=== PATIENT | male | born 1965 | race Caucasian/White ===

== ENCOUNTER 2024-08-26 02:12 | Emergency (ER) | payer OTHER, SELFPAY ==
[2024-08-26] VITALS (16 sets, daily range): BP systolic 137–178; BP diastolic 90–141; PULSE 81–121; RESP 10–22; TEMP 36.4; O2SAT 89–100; BMI 29.7
--- NOTE | 2024-08-26 02:21 | XRR_ITS ---
PROCEDURE INFORMATION: Exam: XR Chest Exam date and time: 08/26/2024 2:25 AM Age: 59 years old Clinical indication: Pain; Chest pressure; Additional info: Chest pain TECHNIQUE: Imaging protocol: Radiologic exam of the chest. Views: 1 view. COMPARISON: No relevant prior studies available. FINDINGS: Lungs: Unremarkable. No consolidation. Pleural spaces: Unremarkable. No pleural effusion. No pneumothorax. Heart/Mediastinum: Unremarkable. No cardiomegaly. Bones/joints: Unremarkable. XR/XR chest 1V portable [id number] IMPRESSION: No acute findings.
--- NOTE | 2024-08-26 02:33 | ECG_ITS ---
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 Measurements Intervals [place] Rate: 117 P: 0 [place]: 0 QRS: 36 QRSD: 94 T: 83 QT: 356 QTc: 497 Interpretive Statements ATRIAL FIBRILLATION WITH RAPID VENTRICULAR RESPONSE WITH ABERRANT CONDUCTION OR VENTRICULAR PREMATURE COMPLEXES NONSPECIFIC ST & T-WAVE ABNORMALITY ABNORMAL RHYTHM ECG No previous ECG available for comparison Electronically Signed On 08-27-2024 17:55:07 PAROLE SUPERVISOR by Eldon Aguilar M.D. [id number]
[2024-08-26 02:36] LABS: Basophils # 0.1 10^3/uL (0.0-0.1); Basophils % 0.5 %; Eosinophils % 0.2 %; Hematocrit 47.5 % (37-53); Lymphocytes # 2.1 10^3/uL (0.8-4.8); Lymphocytes % 12.4 %; Mean Corpuscular HGB Conc 33.7 g/dL (30-55); Mean Corpuscular Hemoglobin 33.1 pg (27-33); Mean Corpuscular Volume 98.3 fl (82-101); Monocytes # 0.8 10^3/uL (0.2-0.9); Monocytes % 4.9 %; Neutrophils # 13.57 10^3/uL (1.8-7.7); Neutrophils % 81.5 %; Nucleated Red Blood Cells % 0 %; Platelet Count 265 10^3/cmm (157-399); Red Blood Count 4.83 10^6/uL (3.85-5.65); Red Cell Distribution Width 13.2 % (12.1-15.1); White Blood Count 16.66 10^3/uL (3.29-11.43)
--- NOTE | 2024-08-26 02:37 | W.ED.SOB ---
HPI - SOB/Dyspnea General: Chief Complaint: Shortness of Breath/Dyspnea Stated Complaint: Sob\High BP Time Seen by Provider: 08/26/24 02:14 History of Present Illness: HPI Narrative: 59-year-old man with a history of hypertension, Atrial fibrillation and chronic anticoagulation on Eliquis who presents emergency room with pain between his shoulder blades and hypertension. He is being treated for respiratory infection with steroids and antibiotics that he got had a urgent care. He has been feeling short of breath for the last couple of days. Blood pressure was quite elevated well over 200 systolic at home he says. No altered mental status. No fevers. No abdominal pain. No vomiting. Related Data Home Medications ?Medication ?Instructions ?Recorded ?Confirmed apixaban 5 mg tablet (Eliquis) 5 mg PO BID 10/07/22 10/07/22 aspirin 81 mg tablet,delayed 81 mg PO DAILY 10/07/22 10/07/22 release (Adult Aspirin Regimen) lisinopril 5 mg tablet 5 mg PO DAILY 10/07/22 10/07/22 Previous Rx's ?Medication ?Instructions ?Recorded colchicine 0.6 mg capsule 0.6 mg PO DAILY #15 caps 10/07/22 clonidine HCl 0.1 mg tablet 0.1 mg PO Q8H PRN hypertensive 08/26/24 emergency #20 tabs Allergies Allergy/AdvReac Type Severity Reaction Status Date / Time No Known Allergies Allergy Verified 08/26/24 02:26 Review of Systems Narrative: Constitutional symptoms: Negative except as documented in HPI. Skin symptoms: Negative except as documented in HPI. Eye symptoms: Negative except as documented in HPI. ENMT symptoms: Negative except as documented in HPI. Respiratory symptoms: Negative except as documented in HPI. Cardiovascular symptoms: Negative except as documented in HPI. Gastrointestinal symptoms: Negative except as documented in HPI. Genitourinary symptoms: Negative except as documented in HPI. Musculoskeletal symptoms: Negative except as documented in HPI. Neurologic symptoms: Negative except as documented in HPI. Psychiatric symptoms: Negative except as documented in HPI. Endocrine symptoms: Negative except as documented in HPI. Physical Exam Narrative: EXAM NARRATIVE: General: Alert, no acute distress. Skin: Warm, dry. Head: Normocephalic, atraumatic. Neck: Supple, trachea midline. Eye: Extraocular movements are intact. Ears, nose, mouth and throat: mucosa moist. Cardiovascular: Irregular, tachycardic, Normal peripheral perfusion. Respiratory: Lungs are clear to auscultation, respirations are non-labored, breath sounds are equal, Symmetrical chest wall expansion. Gastrointestinal: Soft, Nontender, Non distended Musculoskeletal: Normal ROM, no deformity. Neurological: Alert and oriented, No focal neurological deficit observed. Psychiatric: Cooperative, appropriate mood & affect. Course Vital Signs: Vital signs: Vital Signs Temperature 97.6 F 08/26/24 02:17 Pulse Rate 81 08/26/24 05:00 Respiratory Rate 20 H 08/26/24 05:00 Blood Pressure 155/90 08/26/24 05:00 Pulse Oximetry 100 08/26/24 05:00 Oxygen Delivery Me thod Room Air 08/26/24 02:17 MDM - SOB/Dyspnea Medical Decision Making Medical decision making: Differential diagnosis including but not limited to and based on the above HPI, review of systems and physical exam: Patient presents with hypertension: Essential hypertension. Stroke. acute coronary syndrome. kidney failure. congestive heart failure. anxiety Orders placed to evaluate differential diagnosis based on the above differential, HPI and physical exam EKG: Time 2:33 AM. Rate 117. Atrial fibrillation with rapid ventricular response, No ST-T changes, frequent PVCs, This was reviewed and interpreted by myself the ER physician at 2:36 AM. Chest x-ray: No acute process. No infiltrate. No pneumothorax. This was reviewed and interpreted by myself the emergency room physician. I also reviewed the radiology report. Lab Review: Laboratory results were reviewed and interpreted by myself the emergency room physician. Mild leukocytosis, likely associated with steroid use. Blood pressure also likely elevated secondary to this. proBNP is slightly elevated at around 5000. Do not have a baseline. This is likely secondary to his fast heart rate. Heart rate has improved at discharge. No evidence of cardiomegaly or congestive failure on his x-ray. Renal function is normal. Serial troponins are 41 and 39 which is not significant and likely his baseline. No chest pain. He did have some shoulder pain I reviewed the patient's medical record. Reexamination: Patient remained stable. No increased work of breathing. No altered mental status. No focal motor deficits. Heart rate has improved and is in the 80s and 90s. Blood pressures improved in the 130s systolic. He is can hold his steroids. Assessment and plan: Atrial fibrillation with rapid ventricular rate. Accelerated hypertension Medication reaction: Secondary to steroid use. - Discharged home - Discussed plan with patient. Answered any questions. - Evaluation and treatment of this problem were appropriate in the emergency setting. Lab Data 08/26/24 02:30 08/26/24 02:30 Labs/Radiology: Radiology Impressions Chest X-Ray 08/26/24 02:21 IMPRESSION: No acute findings. Laboratory Results WBC 16.66 10^3/uL (3.29-11.43) H 08/26/24 02:30 RBC 4.83 10^6/uL (3.85-5.65) 08/26/24 02:30 Hgb 16.00 g/dL (11.27-16.99) 08/26/24 02:30 Hct 47.5 % (37-53) 08/26/24 02:30 MCV 98.3 fl (82-101) 08/26/24 02:30 MCH 33.1 pg (27-33) H 08/26/24 02:30 MCHC 33.7 g/dL (30-55) 08/26/24 02:30 RDW 13.2 % (12.1-15.1) 08/26/24 02:30 Plt Count 265 10^3/cmm (157-399) 08/26/24 02:30 MPV 10.0 fL (7.4-10.4) 08/26/24 02:30 Neut % (Auto) 81.5 % 08/26/24 02:30 Lymph % (Auto) 12.4 % 08/26/24 02:30 Desha % (Auto) 4.9 % 08/26/24 02:30 Eos % (Auto) 0.2 % 08/26/24 02:30 Baso % (Auto) 0.5 % 08/26/24 02:30 Neut # (Auto) 13.57 10^3/uL (1.8-7.7) H 08/26/24 02:30 Lymph # (Auto) 2.1 10^3/uL (0.8-4.8) 08/26/24 02:30 Desha # (Auto) 0.8 10^3/uL (0.2-0.9) 08/26/24 02:30 Eos # (Auto) 0.0 10^3/uL (0.0-0.8) 08/26/24 02:30 Baso # (Auto) 0.1 10^3/uL (0.0-0.1) 08/26/24 02:30 Nucleated RBC % (auto) 0 % 08/26/24 02:30 Nucleated RBCs # 0.0 /100WBC 08/26/24 02:30 Sodium 133 mmol/L (136-145) L 08/26/24 02:30 Potassium 4.3 mmol/L (3.5-5.1) 08/26/24 02:30 Chloride 92 mmol/L (98-107) L 08/26/24 02:30 Carbon Dioxide 28 mmol/L (22-29) 08/26/24 02:30 Anion Gap 17.3 (5-19) 08/26/24 02:30 BUN 10 mg/dL (8-23) 08/26/24 02:30 Creatinine 1.0 mg/dL (0.7-1.2) 08/26/24 02:30 GFR Calculation 76.2 mL/min (90-130) L 08/26/24 02:30 Glucose 130 mg/dL (65-115) H 08/26/24 02:30 Calculated Osmolality 277 mOsm/kg (285-295) L 08/26/24 02:30 Calcium 9.3 mg/dL (8.5-10.5) 08/26/24 02:30 Total Bilirubin 0.9 mg/dL (0.15-1.2) 08/26/24 02:30 AST 17 U/L (0-40) 08/26/24 02:30 ALT 17 U/L (0-41) 08/26/24 02:30 Alkaline Phosphatase 107 U/L (40-130) 08/26/24 02:30 Troponin T Baseline 41 ng/L (0-15) H 08/26/24 02:30 Troponin T 120 Minute 38.55 ng/L (0-15) H 08/26/24 04:09 Delta Troponin T -2.45 ABS# (0-10) L 08/26/24 04:09 NT-Pro-B Natriuret Pep 3765 pg/mL (0-125) H 08/26/24 02:30 Total Protein 6.7 g/dL (6.6-8.7) 08/26/24 02:30 Albumin 3.8 g/dL (3.5-5.2) 08/26/24 02:30 Globulin 2.9 g/dL (1.3-4.6) 08/26/24 02:30 Coronavirus (PCR) Negative (Negative) 08/26/24 02:30 Influenza A (PCR) Negative (Negative) 08/26/24 02:30 Influenza Type B (PCR) Negative (Negative) 08/26/24 02:30 RSV (PCR) Negative (Negative) 08/26/24 02:30 All radiology interpretation(s) finalized by discharge Discharge Plan Discharge Patient Disposition: Home Clinical Impression: Accelerated hypertension, Atrial fibrillation with rapid ventricular response Condition: Stable Prescriptions: New clonidine HCl 0.1 mg tablet 0.1 mg PO Q8H PRN (Reason: hypertensive emergency) Qty: 20 0RF Rx Instructions: For Systolic >185 diastolic >100 No Action Eliquis 5 mg tablet 5 mg PO BID aspirin [Adult Aspirin Regimen] 81 mg tablet,delayed release (DR/EC) 81 mg PO DAILY lisinopril 5 mg tablet 5 mg PO DAILY colchicine 0.6 mg capsule 0.6 mg PO DAILY Qty: 15 0RF Rx Instructions: 2 capsules day one then 1 capsule daily x 3 days. Discharge Orders: Discharge ED (Routine); Ordered 08/26/24 Ordered By: Shania Barnard Referrals: Ruy Grande MD [Primary Care Provider] - Discharge Diet: Usual diet Discharge Activity: Increase activity as tolerated Patient Instructions: Opioid Safety, Pain Management Activity Restrictions/Additional Instructions: Discontinue steroid. Continue antibiotic. Take clonidine as needed for accelerated hypertension. Return to the emergency room with high heart rates or chest pain. Thank you for choosing [facility] for your healthcare needs today. Please realize this is an emergency room and that we are providing you with a medical screening exam and this may not be complete and all inclusive of all the testing and or work up that you may need to determine your ailment or severity of your illness. You have been screened and evaluated and felt safe for discharge. Health conditions do change or evolve sometimes and as such it is important that you follow up with your Primary Doctor to be re checked, 3-5 days is a general good time frame for follow up. You are always welcome to return to the ED for re assessment if your symptoms are worsening or you have new concerns Print Language: Stateless Coding Level of Care Code ED Service Desk Director for Katey Deleon
[2024-08-26] MEDS: cloNIDine 0.1 mg Tablet PO (02:42)
[2024-08-26 02:53] LABS: Troponin(5th) Baseline 41 ng/L (0-15)
[2024-08-26 03:13] LABS: Alanine Aminotransferase 17 U/L (0-41); Albumin Level 3.8 g/dL (3.5-5.2); Alkaline Phosphatase 107 U/L (40-130); Anion Gap 17.3 (5-19); Aspartate Amino Transferase 17 U/L (0-40); Blood Urea Nitrogen 10 mg/dL (8-23); Calcium 9.3 mg/dL (8.5-10.5); Carbon Dioxide 28 mmol/L (22-29); Chloride 92 mmol/L (98-107); Creatinine Clr Calc Pharmacy 101.5702; Globulin 2.9 g/dL (1.3-4.6); Glomerular Filtration Rate 76.2 mL/min (90-130); Glucose 130 mg/dL (65-115); NT Pro B Type Natriuretic Pept 3765 pg/mL (0-125); Osmolality Calculated 277 mOsm/kg (285-295); Potassium 4.3 mmol/L (3.5-5.1); Sodium 133 mmol/L (136-145); Total Bilirubin 0.9 mg/dL (0.15-1.2); Total Protein 6.7 g/dL (6.6-8.7)
--- NOTE | 2024-08-26 03:28 | ECG_ITS ---
[facility] Test Date: 2024-08-26 Pat Name: Jm Zuniga Department: Room: Gender: Male Reading Assistant: : 1965 Requested By: Shania Membreno Order Number: [id number] Henriquez MD: Eldon Aguilar M.D. Measurements Intervals [place] Rate: 109 P: 0 NM: 0 QRS: 34 QRSD: 102 T: 79 QT: 367 QTc: 496 Interpretive Statements ATRIAL FIBRILLATION WITH RAPID VENTRICULAR RESPONSE NONSPECIFIC T-WAVE ABNORMALITY ABNORMAL RHYTHM ECG Compared to ECG 08/26/2024 02:33:06 Ventricular premature complex(es) no longer present Aberrant conduction of supraventricular beat(s) no longer present T-wave abnormality still present Electronically Signed On 08-27-2024 18:27:07 DIRECTOR OF CLOUD SERVICES by Eldon Aguilar M.D. [id number]
[2024-08-26 03:32] LABS: Covid PCR NEGATIVE (Negative); Influenza A NEGATIVE (Negative); Influenza B NEGATIVE (Negative); Respiratory Syncytial Virus Ce NEGATIVE (Negative)
[2024-08-26] MEDS: dilTIAZem 5 mg/mL SDV 5 mL 20 MG IVP (03:32)
--- NOTE | 2024-08-26 04:18 | ECG_ITS ---
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
[2024-08-26 04:30] LABS: Troponin 5 2HR 38.55 ng/L (0-15)
[2024-08-26 04:31] LABS: Troponin 5 2HR Delta -2.45 ABS# (0-10)
== END 2024-08-26 05:14 | disposition home or self-care (01) ==
PROVIDERS: Emergency Provider Emergency Medicine; PCP Family Medicine
DX: I48.20 Chronic atrial fibrillation, unspecified (principal); I10 Essential (primary) hypertension; Z79.01 Long term (current) use of anticoagulants; Z79.82 Long term (current) use of aspirin; Z11.52 Encounter for screening for COVID-19
CPT/HCPCS: 36415; 71045; 80053; 83880; 84484; 85025; 87637; 93005; 96374; 99285; J3490